=== PATIENT | male | born 1970 | race Caucasian/White ===

== ENCOUNTER → 2020-10-25 | Outpatient (CLI) | payer OTHER ==
[~2020-10-25] MED LIST: ZYRTEC10 MG PO
== END ==
LOC: KOH-I 16:15
DX: S60.552A Superficial foreign body of left hand, initial encounter (principal); X58.XXXA Exposure to other specified factors, initial encounter
CPT/HCPCS: 73120

== ENCOUNTER → 2020-11-09 | Day surgery (SDC) | payer OTHER ==
[~2020-11-09] VITALS: Ht 175.3 cm; Wt 87.5 kg
== END | disposition home or self-care (01) ==
LOC: OR 07:30
DX: S61.422A Laceration with foreign body of left hand, initial encounter (principal); K21.9 Gastro-esophageal reflux disease without esophagitis; Z20.822 Contact with and (suspected) exposure to COVID-19; Z88.1 Allergy status to other antibiotic agents; W45.8XXA Other foreign body or object entering through skin, initial encounter
CPT/HCPCS: 73130; 76000; J0690; J2001; J2704; J3010; J7120

== ENCOUNTER → 2022-02-06 | Outpatient (CLI) | payer BC | LOC: KOH-I 10:10 | DX: M79.641 Pain in right hand (principal); S62.650A Nondisplaced fracture of middle phalanx of right index finger, initial encounter for closed fracture; X58.XXXA Exposure to other specified factors, initial encounter | CPT/HCPCS: 73120 ==